=== PATIENT | female | born 1995 | race Caucasian/White ===

== ENCOUNTER 2018-08-27 21:09 | Outpatient (CLI) | payer MEDICAID ==
[~2018-08-27] VITALS: Ht 154.9 cm; Wt 59.5 kg
[~2018-08-27 21:09] MED LIST: FERROUS SULFATE65 MG PO; MOTRIN 800800 MG/TAB PO; PERCOCET 325 MG1 TA2 PO; PRENATAL
[2018-08-27 21:30] VITALS: BP 103/62; PULSE 91; TEMP 98.3
[2018-08-27 22:00] VITALS: BP 100/58; PULSE 85
[2018-08-27 22:30] VITALS: BP 101/67; PULSE 91
== END 2018-08-27 22:42 | disposition home or self-care (01) ==
LOC: LDRO 21:09 → LDR 21:15 → LDRO 22:42
DX: O62.9 Abnormality of forces of labor, unspecified (principal); Z3A.38 38 weeks gestation of pregnancy
CPT/HCPCS: OP

== ENCOUNTER 2018-09-01 01:34 | Inpatient (IN) | payer MEDICAID ==
[~2018-09-01] VITALS: Ht 154.9 cm; Wt 59.5 kg
[2018-09-01] VITALS (42 sets, daily range): BP systolic 79–130; BP diastolic 43–69; PULSE 66–105; TEMP 96.4–98.9
[2018-09-01 09:11] LABS: BASO % 0.4 % (0.0-2.0); EOS % 0.4 % (0-4.0); GRAN # 5.2 (1.4-6.5); HEMOGLOBIN 10.9 g/dl (12.5-16.0); LYMPH # 1.9 (1.2-3.4); MEAN CELL VOLUME 82 fl (80.0-100.0); MEAN CORPUSCULAR HEMOGLOBIN 27 pg (27.0-31.0); MEAN CORPUSCULAR HGB CONC 32 g/dl (33.0-37.0); MEAN PLATELET VOLUME 11.5 fl (7.4-10.4); MONO # 0.5 (0.1-0.6); MONO % 6.8 % (1.7-9.3); PLATELET COUNT 198 K/mm3 (130-400); REDCELL DISTRIBUTION WIDTH-CV 15.2 % (11.5-14.5)
[2018-09-01 09:12] LABS: HEMATOCRIT 33.7 % (37.0-47.0)
[2018-09-01] MEDS ORDERED: IBU600 MG PO (17:22)
[2018-09-02 00:45] VITALS: BP 94/62; PULSE 73; TEMP 98.3
[2018-09-02 05:25] VITALS: BP 99/63; PULSE 67; TEMP 97.9
[2018-09-02 08:45] VITALS: BP 101/53; PULSE 74; TEMP 97.8
[2018-09-02 12:33] VITALS: BP 91/65; PULSE 71; TEMP 97.7
[2018-09-02 16:15] VITALS: BP 96/56; PULSE 76; TEMP 97.8
[2018-09-02 20:45] VITALS: BP 101/66; PULSE 83; TEMP 97.7
[2018-09-03 07:00] VITALS: BP 104/62; PULSE 66; TEMP 98.1
== END 2018-09-03 11:55 | disposition home or self-care (01) | DRG 788 ==
LOC: LDRO 01:34 → LDR 07:35 → OB 09-02 10:06
PROVIDERS: Obstetrics & Gynecology
PROC: 10D00Z1 Extraction of Products of Conception, Low, Open Approach (ICD-10-PCS; principal; 2018-09-01)
DX: O34.211 Maternal care for low transverse scar from previous cesarean delivery (principal); Z3A.38 38 weeks gestation of pregnancy; Z37.0 Single live birth; O76 Abnormality in fetal heart rate and rhythm complicating labor and delivery; Z28.21 Immunization not carried out because of patient refusal; J45.909 Unspecified asthma, uncomplicated; O63.1 Prolonged second stage (of labor)
CPT/HCPCS: J2590; J2795; J7120

== ENCOUNTER 2020-08-12 21:25 | Inpatient (IN) | payer MEDICAID ==
[~2020-08-12] VITALS: Ht 154.9 cm; Wt 63.2 kg
[2020-08-12] VITALS (7 sets, daily range): BP systolic 115–163; BP diastolic 60–82; PULSE 67–95; TEMP 97.9
[~2020-08-12 21:25] MED LIST changes: +IBU600 MG PO
--- NOTE | 2020-08-12 21:27 | NUR ---
Pt wheeled with LDR 2 with significant other. Pt assist to bed by , pt unable to walk due to contraction pain. Pts reports her water breaking on the drive here from [place] but does not remember the time. Pt unable to talk due to pain. 2129: SVE 9/100/0, clear fluid noted with bloody show. 2130: called and requested for delivery. 2131: IV started and labs obtained via IV site. LR bolus infusing. 2133: Pt starting to push with contractions. Encouraged pt to breath through contractions as much as she can. Pt states she is unable to do so. 2134: Spontaneous delivery of infants head by this RN. Lela RN at bedside for assistance. Tight nuchal cord X2 noted. Cord clamped and cut by this RN. Pt encouraged to continue pushing. 2135: Spontaneous delivery of viable female infant by this RN. Infant to radiant warmer immediately and care assummed by Salvatore BRIGGS. Pericare provided and pt encouraged to breath. 2144: at bedside. Update on delivery given to provider. 2147: Spontaneous delivery of intact placenta by . Pitocin started at 333mus/hr per protocol. Pericare provided and pads changed. Pt repositoned in bed. Plan of care and safety precautions explained. 0: Fundal message completed. Softball size clot noted with multiple trailing small clots noted. Minimal free flow noted. at bedside and updated on pts bleeding. Orders for methergine received. 4: Methergine explained and administered at this time per orders.
[2020-08-12 23:48] LABS: BASO # 0.1 (0.0-0.2); BASO % 0.4 % (0.0-2.0); EOS % 0.3 % (0-4.0); GRAN # 7.3 (1.4-6.5); GRAN % 64.4 % (42.2-75.2); HEMOGLOBIN 11.2 g/dl (12.5-16.0); LYMPH # 2.9 (1.2-3.4); LYMPH % 25.7 % (20.0-51.0); MEAN CELL VOLUME 78 fl (80.0-100.0); MEAN CORPUSCULAR HEMOGLOBIN 24 pg (27.0-31.0); MEAN CORPUSCULAR HGB CONC 31 g/dl (33.0-37.0); MEAN PLATELET VOLUME 11.6 fl (7.4-10.4); MONO % 8.8 % (1.7-9.3); PLATELET COUNT 286 K/mm3 (130-400); RED BLOOD COUNT 4.63 M/mm3 (4.10-5.30); REDCELL DISTRIBUTION WIDTH-CV 15.5 % (11.5-14.5)
[2020-08-12 23:54] LABS: HEMATOCRIT 36.2 % (37.0-47.0)
[2020-08-13] VITALS (7 sets, daily range): BP systolic 99–109; BP diastolic 50–71; PULSE 61–98; TEMP 97.6–98.5
--- NOTE | 2020-08-13 09:06 | NUR ---
Initial visit; Patient thanked [facility] for offering congratulations and God's blessings for the of her daughter. [facility] thanked family for choosing [facility].
[2020-08-14 07:40] VITALS: BP 98/57; PULSE 86; TEMP 98
[2020-08-14] MEDS ORDERED: IBU600 MG PO (08:38)
[2020-08-14 16:15] VITALS: BP 106/66; PULSE 85; TEMP 98.7
== END 2020-08-14 18:15 | disposition home or self-care (01) | DRG 807 ==
LOC: LDRO 21:25 → OB 21:55 → LDR 21:55 → OB 08-13 05:18
PROVIDERS: ADMIT Obstetrics & Gynecology
PROC: 10E0XZZ Delivery of Products of Conception, External Approach (ICD-10-PCS; principal; 2020-08-12)
DX: O62.3 Precipitate labor (principal); Z37.0 Single live birth; O69.1XX0 Labor and delivery complicated by cord around neck, with compression, not applicable or unspecified; O34.211 Maternal care for low transverse scar from previous cesarean delivery; Z3A.39 39 weeks gestation of pregnancy
CPT/HCPCS: J2210; J2590; J7120